=== PATIENT | female | born 1995 | race African-American/Black ===

== ENCOUNTER 2020-01-12 21:26 | Emergency (ER) | payer OTHER ==
[~2020-01-12] VITALS: Ht 165.1 cm; Wt 70.0 kg
[2020-01-12 21:45] VITALS: BP 129/81
[2020-01-12] MEDS ORDERED: CYCL10TA2 PO (22:39)
[2020-01-12] MEDS ORDERED: TRAM-48 PO (22:39)
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
== END 2020-01-12 23:00 | disposition home or self-care (01) ==
LOC: ER 21:26
DX: S16.1XXA Strain of muscle, fascia and tendon at neck level, initial encounter (principal); S00.33XA Contusion of nose, initial encounter; M54.6 Pain in thoracic spine; R04.0 Epistaxis; V49.9XXA Car occupant (driver) (passenger) injured in unspecified traffic accident, initial encounter; Y92.488 Other paved roadways as the place of occurrence of the external cause; Y93.89 Activity, other specified; Y99.8 Other external cause status
CPT/HCPCS: 99283